=== PATIENT | female | born 1970 | race Caucasian/White ===

== ENCOUNTER 2020-03-19 21:36 | Emergency (ER) | payer OTHER ==
[2020-03-19] MEDS ORDERED: SODIUM CHLORIDE 1,000 ML IV STA (21:46)
[2020-03-19] MEDS ORDERED: ONDANSETRON 4 MG/2 ML VIAL IVPUSH ONE (21:46)
--- NOTE | 2020-03-19 21:46 | PDOC ---
History of Present Illness - General Chief Complaint: Pain, Acute Stated Complaint: ABDOMINAL PAIN, VOMITING Time Seen by Provider: 03/19/20 21:45 - History of Present Illness Initial Comments: 03/19/20 22:52 This 49-year-old woman with a history of migraine headache/GERD presents with 2- day history of increasing crampy mid abdominal pain with nausea. Patient had similar episode 1 year ago and was found to have a bowel obstruction; she had endoscopic procedure at that time. Etiology of the obstruction is unclear. She noted similar type of crampy pain yesterday; she started to have nausea today and vomited several times just prior to presentation (no blood /coffee-ground emesis). No diarrhea or constipation noted. No fever/chills. Patient is visiting from [place] (last year's procedure was performed in [place]) Medications as noted below Allergy: Ciprofloxacin Non-smoker/no daily alcohol or other recreational drug use Past History - Medical History Allergies/Adverse Reactions: Allergies Allergy/AdvReac Type Severity Reaction Status Date / Time ciprofloxacin [From Cipro] Allergy Verified 03/19/20 21:38 Home Medications: Ambulatory Orders Esomeprazole Magnesium 40 mg PO DAILY 03/19/20 Sumatriptan Succinate 100 mg PO PRN 03/19/20 Review of Systems - Review of Systems Able to Perform ROS?: Yes Comments:: 12 point review of systems is negative except for what is noted in the history of present illness *Physical Exam - Physical Exam GENERAL: Adult female, alert and oriented x3, no acute distress HEAD: Normal with no signs of trauma. EYES: PERRLA, EOMI, sclera anicteric, conjunctiva clear. ENT: Ears normal, nares patent, oropharynx clear without exudates. Dry mucous membranes. NECK: Normal range of motion, supple without lymphadenopathy, JVD, or masses. LUNGS: Breath sounds equal, clear to auscultation bilaterally. No wheezes, and no crackles. HEART:Regular rate and rhythm, normal S1 and S2 without murmur, rub or gallop. ABDOMEN:.normal bowel sounds; moderate mid abdominal tenderness without guarding or rebound; soft, nondistended EXTREMITIES: Normal range of motion, no edema. No clubbing or cyanosis. No erythema, or tenderness. NEUROLOGICAL: Cranial nerves II through XII grossly intact. Normal speech. No focal neurological deficits. MUSCULOSKELETAL: Back non-tender to palpation, no CVA tenderness SKIN: Warm, Dry, normal turgor, no rashes or lesions noted. ED Treatment Course - LABORATORY CBC & Chemistry Diagram: 03/19/20 22:35 03/19/20 22:35 Medical Decision Making - Medical Decision Making As noted above, this 49-year-old woman with a history of SBO 1 year ago presents with 2-day history of increasing mid abdominal pain accompanied by nausea. The patient had vomiting earlier today after drinking a large amount of Pedialyte. No other associated signs. Patient continues to have bowel movements and passing gas. Exam as noted with moderate mid abdominal tenderness without peritoneal signs. IV access was obtained with CBC and chemistry profile sent. Patient received a liter of normal saline and 4 mg of Zofran IV. Abdominal/pelvic CT obtained to evaluate for recurrent SBO as well as pancreatitis, appendicitis or other acute injury or abdominal pathology. Laboratory evaluation notable for white blood cell count of 14,700; remainder of the laboratory evaluation is essentially normal Abdominal/pelvic CT with IV contrast obtained and interpreted by Imaging manager validation: No evidence of small bowel obstruction, acute pancreatitis or other acute injury abdominal/intrapelvic pathology. Appendix was not visualized but there was no periappendiceal inflammation seen. Results discussed with the patient. After IV fluids and IV Zofran, the patient is much more comfortable. She has no increase in her periumbilical tenderness; abdomen continues to be soft with normal bowel sounds. Since appendix was not visualized, acute appendicitis is still possible although she has no tenderness in the right lower quadrant and there is no evidence of periappendiceal inflammation. For this reason, she should return to the emergency room immediately if she has any persistent or worsening of her abdominal pain or if she develops vomiting/fever. The patient asked specifically whether she can continue fiber supplement. She uses a specific kind when she is at home in [place] (she cannot recall name). Patient was advised that she can continue fiber supplement although she should avoid large amounts of hard to digest vegetable fiber since this can cause small bowel obstruction Discharge - Discharge Information Problems reviewed: Yes Clinical Impression/Diagnosis: Abdominal pain Qualifiers: Abdominal location: periumbilical Qualified Code(s): R10.33 - Periumbilical pain Condition: Stable Disposition: HOME - Follow up/Referral - Patient Discharge Instructions Patient Printed Discharge Instructions: DI for Abdominal Pain-Adult Additional Instructions: continue to drink plenty of fluids avoid eating large amounts of indigestible vegetable materials, as discussed you can use Fiberall/Metamucil or your usual fiber supplement Return to ER if you have worsening pain, fever or vomiting Followup with your doctor when you return home - Post Discharge Activity
[2020-03-19 21:52] VITALS: PULSE 96; TEMP 98.2; BMI 21.4
[2020-03-19] MEDS ORDERED: ONDANSETRON 4 MG/2 ML VIAL ONE (22:12)
[2020-03-19 22:44] LABS: BASO % 0.2 % (0-2.0); EOS % 0.4 % (0-4.5); HEMATOCRIT 38.9 % (32.4-45.2); HEMOGLOBIN 12.8 GM/dl (10.7-15.3); LYMPH % 7.3 % (8-40); MCH 30.9 pg (25.7-33.7); MCHC 32.9 g/dl (32.0-36.0); MEAN CELL VOLUME 93.7 fl (80-96); MEAN PLT VOLUME 8.4 fl (7.5-11.1); MONO % 2.5 % (3.8-10.2); NEUT % 89.6 % (42.8-82.8); PLATELET COUNT 369 K/MM3 (134-434); RBC 4.15 M/mm3 (3.60-5.2); RDW 13.3 % (11.6-15.6); WHITE BLOOD COUNT 14.7 K/mm3 (4.0-10.8)
[2020-03-19 22:59] LABS: ALBUMIN 3.8 g/dl (3.4-5.0); BILIRUBIN,TOTAL 0.7 mg/dl (0.2-1); CREATININE 0.7 mg/dl (0.55-1.3); TOT PROT 7.2 g/dl (6.4-8.2)
[2020-03-20 00:20] VITALS: BP 130/96
== END 2020-03-20 03:05 | disposition home or self-care (01) ==
LOC: FER 21:36
PROC: 3E033GC Introduction of Other Therapeutic Substance into Peripheral Vein, Percutaneous Approach (ICD-10-PCS; principal; 2020-03-19)
PROC: 3E0337Z Introduction of Electrolytic and Water Balance Substance into Peripheral Vein, Percutaneous Approach (ICD-10-PCS; 2020-03-19)
DX: R10.33 Periumbilical pain (principal)
CPT/HCPCS: 36415; 74177-TC; 80053; 81003; 83690; 84703; 85025; 99285-25